=== PATIENT | male | born 1950 | race African-American/Black ===

== ENCOUNTER 2019-03-26 06:18 | Emergency (ER) | payer OTHER ==
[~2019-03-26] VITALS: Ht 182.9 cm; Wt 90.7 kg
--- OUTSIDE RECORDS SUMMARY | 2019-03-26 06:20 | XMS REPORT | Clinical Summary ---
Author Author [facility] Organization [facility] Address Unknown Phone Unavailable Care Team Providers Care Customer Security Clerk Name Role Phone Asked, No Pcp PCP Unavailable Allergies No Known Allergies Medications End Date Status Medication Sig Dispensed Refills Start Date 08/08/2018 levoFLOXacin (LEVAQUIN) Take 1 tablet 3 tablet 0 750 MG tablet (750 mg 9 total) by mouth every other day for 7 days. 2018 ipratropium-albuterol Inhale 2 4 g 0 (COMBIVENT RESPIMAT) puffs every 4 9 20-100 mcg/actuation mist (four) hours inhaler as needed for wheezing for up to 30 days. Active Problems Problem Noted Date Community acquired pneumonia 07/31/2018 Encounters Care Team Description Date Type Specialty Niko Rodriguez DO Patel, Akash Mahendra, MD Community acquired pneumonia, unspecified laterality (Primary Dx); Acute systolic congestive heart failure (HCC) 07/31/2018 [facility] General Internal Medicine - Encounter 08/01/2018 Loretta Mayer NP 04/12/2018 Refill Endocrinology after 03/25/2018 Social History Date Tobacco Use Types Packs/Day Years Used Never Smoker Smokeless Tobacco: Snuff, Chew Current User Drinks/Week oz/Week Comments Alcohol Use No Alcohol Habits Answer Date Recorded How often do you have a drink containing alcohol? Never 07/31/2018 How many drinks containing alcohol do you have on Not asked a typical day when you are drinking? How often do you have six or more drinks on one Not asked occasion? Sex Assigned at Date Recorded Not on file Industry Job Start Date Occupation Not on file Not on file Not on file Travel End Travel History Travel Start No recent travel history available. Last Filed Vital Signs Reading Time Taken Comments Vital Sign 122/71 08/01/2018 10:37 AM RN FAMILY Blood Pressure 78 08/01/2018 10:37 AM RN FAMILY Pulse 36.9 C (98.4 F) 08/01/2018 10:37 AM RN FAMILY Temperature 18 08/01/2018 10:37 AM RN FAMILY Respiratory Rate 97% 08/01/2018 10:37 AM RN FAMILY Oxygen Saturation - - Inhaled Oxygen Concentration 98.4 kg (217 lb) 07/31/2018 10:48 PM RN FAMILY Weight 175.3 cm (5' 9") 07/31/2018 9:46 PM RN FAMILY Height 32.05 07/31/2018 9:46 PM RN FAMILY Body Mass Index Plan of Treatment Health Maintenance Due Date Last Done Comments COLONOSCOPY SCREENING 2001 SHINGLES VACCINES (#1) 2001 65+ PNEUMOCOCCAL VACCINE 2016 01/31/2018, 11/21/2016 (2 of 2 - PPSV23) INFLUENZA VACCINE 02/12/2019 Procedures Comments Procedure Name Priority Date/Time Associated Diagnosis POC GLUCOSE Routine 08/01/2018 11:29 AM RN FAMILY LACTIC ACID LEVEL, SEPSIS Timed 08/01/2018 - NOW AND REPEAT 2X EVERY 5:46 AM RN FAMILY 3 HOURS TROPONIN Timed 08/01/2018 5:46 AM RN FAMILY POC GLUCOSE Routine 08/01/2018 5:44 AM RN FAMILY HEMOGLOBIN A1C Routine 08/01/2018 3:00 AM RN FAMILY TROPONIN Timed 08/01/2018 3:00 AM RN FAMILY RESPIRATORY PATHOGEN Routine 07/31/2018 PANEL 11:30 PM RN FAMILY BLOOD CULTURE, AEROBIC & Routine 07/31/2018 ANAEROBIC 11:21 PM RN FAMILY LACTIC ACID LEVEL, SEPSIS Timed 07/31/2018 - NOW AND REPEAT 2X EVERY 11:06 PM RN FAMILY 3 HOURS BLOOD CULTURE, AEROBIC & Routine 07/31/2018 ANAEROBIC 11:05 PM RN FAMILY XR CHEST 2 VW STAT 07/31/2018 10:20 PM RN FAMILY ESTIMATED GFR STAT 07/31/2018 10:03 PM RN FAMILY B NATRIURETIC PEPTIDE STAT 07/31/2018 10:03 PM RN FAMILY TROPONIN STAT 07/31/2018 10:03 PM RN FAMILY CREATINE KINASE, TOTAL STAT 07/31/2018 (CPK) 10:03 PM RN FAMILY BASIC METABOLIC PANEL STAT 07/31/2018 10:03 PM RN FAMILY HC COMPLETE BLD COUNT STAT 07/31/2018 W/AUTO DIFF 10:03 PM RN FAMILY ECG 12-LEAD STAT 07/31/2018 9:44 PM RN FAMILY ECG ED PRELIMINARY Routine 07/31/2018 INTERPRETATION 9:42 PM RN FAMILY ND CRITICAL CARE, E/M Routine 07/31/2018 30-74 MINUTES 9:42 PM RN FAMILY after 03/25/2018 Results * POC glucose (08/01/2018 11:29 AM RN FAMILY) Only the most recent of 2 results within the time period is included. [facility] POC glucose 97 65 - 99 mg/dL [place] Comment: [facility] Meter ID: [id number] [facility] Pattern Drum Maker: Yue Levin Specimen Performing Organization Address [facility] Phone Number [address] [place] [address] PATHOLOGY AND GENOMIC MEDICINE [address] * Lactic acid level, SEPSIS - Now and repeat 2x every 3 hours (08/01/2018 5:46 AM RN FAMILY) Only the most recent of 2 results within the time period is included. [facility] Lactic acid 1.1 0.5 - 2.2 mmol/L [facility] Specimen Plasma specimen Performing Organization Address [facility] Phone Number [address] [place] [address] PATHOLOGY AND GENOMIC MEDICINE [address] * Troponin (08/01/2018 5:46 AM RN FAMILY) Only the most recent of 3 results within the time period is included. [facility] Troponin <0.300 0.000 - 0.300 ng/mL [place] Comment: [facility] Kaela 0.30 - 1.49 [facility] ng/mlMay indicate increased risk of acute coronary syndrome. >=1.5 ng/ml Consistent with acute myocardial infarction. The diagnostic value of a single normal or non-diagnostic result is questionable.Serial samples at 2-6 hour intervals are required to rule out acute myocardial injury. Specimen Plasma specimen Performing Organization Address [facility] Phone Number [facility] OF [address] [place] [address] [place] [address] PATHOLOGY AND [facility] MEDICINE [address] * Hemoglobin A1c (08/01/2018 3:00 AM RN FAMILY) [facility] Hemoglobin A1C 6.2 (H) 4.0 - 6.0 % [place] Comment: [facility] Less than 6% - Goal of therapy for Type II Diabetes Less than 7%-Goal of therapy for Type I Diabetes Less than 8%-Accepta ble control for Type I or Type II Diabetes Greater than 8%-Unacceptabl e control; action indicated. ([id number]) Specimen Blood Performing Organization Address [facility] Phone Number [address] [place] [address] PATHOLOGY AND [facility] MEDICINE [address] * Respiratory pathogen panel (07/31/2018 11:30 PM RN FAMILY) [facility] Respiratory Negative for all pathogens [place] pathogen panel tested: [facility] Negative for Adenovirus [facility] Negative for Coronavirus HKU1 Negative for Coronavirus NL63 Negative for Coronavirus 229E Negative for Coronavirus OC43 Negative for Human Metapneumovirus Negative for Rhinovirus/Enterovirus Negative for Influenza A Negative for Influenza A/H1 Negative for Influenza A/H3 Negative for Influenza A/H1-2009 Negative for Influenza B Negative for Parainfluenza Virus 1 Negative for Parainfluenza Virus 2 Negative for Parainfluenza Virus 3 Negative for Parainfluenza Virus 4 Negative for Respiratory Syncytial Virus Negative for Bordetella pertussis Negative for Chlamydophila pneumoniae Negative for Mycoplasma pneumoniae This real-time PCR assay detects the presence of nucleic acids (RNA or DNA) for the respiratory pathogens listed. A result of "Not-detected" does not exclude the possibility of the presence of one or more pathogens at concentrations less than the detectable limits of the assay. Comment: Specimen Information Specimen Source: Nares Specimen Site: Right Specimen Nares - Right Performing Organization Address [facility] Phone Number [facility] [place] [address] PATHOLOGY AND GENOMIC MEDICINE [place] [facility] [address] [place] [address] HOSPITAL * Blood culture, aerobic & anaerobic (07/31/2018 11:21 PM RN FAMILY) Only the most recent of 2 results within the time period is included. Blood culture No growth after 5 days of [place] isolate incubation. [facility] Comment: HOSPITAL Specimen Information Specimen Source: Blood Specimen Site: Antecubital, right Specimen Blood - Antecubital, right Performing Organization Address [facility] Phone Number [facility] [place] [address] PATHOLOGY AND GENOMIC MEDICINE [place] [facility] [address] [place] [address] HOSPITAL * XR Chest 2 Vw (07/31/2018 10:20 PM RN FAMILY) Specimen Narrative Performed At EXAMINATION: XR CHEST 2 VW [facility]IANT CLINICAL HISTORY: Chest painnormal ekg COMPARISON:None. IMPRESSION: Diffuse linear interstitial opacities and peribronchial cuffing which likely represents an infectious process, in the appropriate clinical setting. No focal consolidations. No pleural effusion or pneumothorax. The cardiomediastinal silhouette is normal. No acute osseous abnormalities. [facility]-[id number] Procedure Note Interface, Radiology Results Incoming - 07/31/2018 10:27 PM RN FAMILY EXAMINATION: XR CHEST 2 VW CLINICAL HISTORY: Chest pain normal ekg COMPARISON: None. IMPRESSION: Diffuse linear interstitial opacities and peribronchial cuffing which likely represents an infectious process, in the appropriate clinical setting. No focal consolidations. No pleural effusion or pneumothorax. The cardiomediastinal silhouette is normal. No acute osseous abnormalities. [facility]-[id number] Performing Organization Address [facility]/State/Zipcode Phone Number [facility] [address] [place] [address] * Estimated GFR (07/31/2018 10:03 PM RN FAMILY) Pathologist [facility] Estimated GFR 41 (A) mL/min/1.73 m2 [place] Comment: [facility] rpretation G1 >=90 Normal or high G2 60-89Mildly decreased [id number] Mildly to moderately decreased [id number] Moderately to severely decreased G4 15-29Severely decreased G5 <15Kidney failure The eGFR was calculated using the Chronic Kidney Disease Epidemiology Collaboration (CKD-EPI) equation. Interpretation is based on recommendations of the National Kidney Foundation-Kidney Disease Outcomes Quality Initiative (NKF-KDOQI) published in 2014. Specimen Plasma specimen Performing Organization Address City/State/Zipcode Phone Number [facility][1] [id number] [place] [address] [place] [address] PATHOLOGY AND GENOMIC MEDICINE [address] [place] [address] [facility] * CBC with platelet and differential (07/31/2018 10:03 PM RN FAMILY) [facility] WBC 16.91 (H) 4.50 - 11.00 k/uL [facility] RBC 4.62 4.40 - 6.00 m/uL [facility] HGB 13.3 (L) 14.0 - 18.0 g/dL [facility] HCT 41.3 41.0 - 51.0 % [facility] MCV 89.4 82.0 - 100.0 fL [facility] MCH 28.8 27.0 - 34.0 pg [facility] MCHC 32.2 31.0 - 37.0 g/dL [facility] RDW - SD 44.5 37.0 - 55.0 fL [facility] MPV 9.8 8.8 - 13.2 fL [facility] Platelet count 378 150 - 400 k/uL [facility] Nucleated RBC 0.00 /100 WBC [facility] Neutrophils 80.0 (H) 39.0 - 69.0 % [facility] Lymphocytes 15.4 (L) 25.0 - 45.0 % [facility] Monocytes 2.8 0.0 - 10.0 % [facility] Eosinophils 1.2 0.0 - 5.0 % [facility] Basophils 0.4 0.0 - 1.0 % [facility] Specimen Blood Performing Organization Address City/[facility] Phone Number [address] [place] [address] PATHOLOGY AND GENOMIC MEDICINE [address] * B natriuretic peptide (07/31/2018 10:03 PM RN FAMILY) Pathologist [facility] BNP 646 (H) 0 - 100 pg/mL [facility] Specimen Blood Performing Organization Address City/[facility] Phone Number [address] [place] [address] PATHOLOGY AND GENOMIC MEDICINE [address] * Creatine kinase, total (CPK) (07/31/2018 10:03 PM RN FAMILY) Pathologist [facility] Creatine kinase 207 39 - 308 U/L [facility] Specimen Plasma specimen Performing Organization Address City/[facility] Phone Number [address] [place] [address] PATHOLOGY AND GENOMIC MEDICINE [address] * Basic metabolic panel (07/31/2018 10:03 PM RN FAMILY) Pathologist [facility] Sodium 141 135 - 148 mEq/L [facility] Potassium 3.7 3.5 - 5.0 mEq/L [facility] Chloride 104 98 - 112 mEq/L [facility] CO2 21 (L) 24 - 31 mEq/L [facility] Anion gap 16@ANIO (H) 7 - 15 mEq/L [facility] BUN 18 8 - 23 mg/dL [facility] Creatinine 1.70 (H) 0.70 - 1.20 mg/dL [facility] Glucose 219 (H) 65 - 99 mg/dL [facility] Calcium 9.5 8.8 - 10.2 mg/dL [facility] Specimen Plasma specimen Performing Organization Address City/[facility]/Zipcode [place] Number [place] [address] [place] [address] PATHOLOGY AND GENOMIC MEDICINE [facility] [address] [place] [address] [facility] * ECG 12 lead (07/31/2018 9:44 PM RN FAMILY) Ventricular 112 [facility] rate Atrial rate 112 [facility] ND interval 160 [facility] QRSD interval 94 [facility] QT interval 330 [facility] QTC interval 450 [facility] P axis 1 51 [facility] QRS axis 1 -27 [facility] T wave axis 103 [facility] EKG impression Sinus tachycardia-Possible [facility] Left atrial enlargement-Nonspecific T wave abnormality-Abnormal ECG-No previous ECGs available- Specimen Narrative Performed At Performing Organization Address City/[facility] Phone Number [facility] MUSE [address] [place] [address] * ECG ED Preliminary Interpretation - Not an Order (07/31/2018 9:42 PM RN FAMILY) Narrative Performed At Niko Rodriguez DO 08/01/2018 12:24 AM ECG ED Preliminary Interpretation - Not an Order Performed by: Niko Rodriguez DO Authorized by: Niko Rodriguez DO ECG reviewed by ED Physician in the absence of a deputy coroner investigator: yes ([id number]) Previous ECG: Previous ECG:Unavailable Interpretation: Interpretation: normal Rate: ECG rate:112 ECG rate assessment: tachycardic Rhythm: Rhythm: sinus rhythm and sinus tachycardia Ectopy: Ectopy: none QRS: QRS axis:Normal QRS intervals:Normal Conduction: Conduction: normal ST segments: ST segments:Non-specific T waves: T waves: non-specific * CRITICAL CARE (07/31/2018 9:42 PM RN FAMILY) Narrative Performed At Niko Rodriguez DO 08/01/2018 12:24 AM Critical Care Performed by: Niko Rodriguez DO Authorized by: Niko Rodriguez DO Critical care provider statement: Critical care time (minutes):60 Critical care end time:08/01/2018 12:24 AM Critical care time was exclusive of:Separately billable procedures and treating other patients Critical care was necessary to treat or prevent imminent or life-threatening deterioration of the following conditions:Respiratory failure Critical care was time spent personally by me on the following activities:Ordering and performing treatments and interventions, ordering and review of laboratory studies, ordering and review of radiographic studies, pulse oximetry, re-evaluation of patient's condition, review of old charts, development of treatment plan with patient or surrogate, discussions with primary provider, evaluation of patient's response to treatment, examination of patient and obtaining history from patient or surrogate John 'yes' if you are taking over critical care for this patient from another provider.: no after 03/25/2018 Insurance Type Payer Benefit Subscriber ID Effective Phone Address Plan / Dates Group HMO CIGNA CIGNA OPEN xxxxxxxxxxx 2016-P ACCESS/NET resent WORK Medicare MEDICARE MEDICARE xxxxxxxxxx 2016-P [place], PART A resent [place] Advance Directives For more information, please contact: [phone] Patient Erp Programmer Explanation Type Date Recorded 000 Advance Directives, 07/31/2018 9:44 PM Living Will and Medical Power of Program Consultant
[2019-03-26] MEDS ORDERED: ATORVASTATIN CA40 MG PO (06:34)
[2019-03-26] MEDS ORDERED: LISINOPRIL-HCT1 EAC1 PO (06:34)
[2019-03-26 06:44] LABS: BASOPHILS # (AUTO) 0.1 (0.0-0.1); BASOPHILS % 0.7 % (0.0-1.0); EOSINOPHILS # (AUTO) 0.2 (0.0-0.4); EOSINOPHILS % 2.5 % (0.0-6.0); HEMATOCRIT 37.4 % (38.2-49.6); HEMOGLOBIN 12.4 g/dL (14.0-18.0); LYMPHOCYTES # (AUTO) 3.6 (1.0-3.2); LYMPHOCYTES % 42.7 % (18.0-39.1); MEAN CORPUSCULAR HEMOGLOBIN 29.2 pg (28-32); MEAN CORPUSCULAR HGB CONC 33.2 g/dL (31-35); MEAN CORPUSCULAR VOLUME 88.2 fL (81-99); MONOCYTES # (AUTO) 0.5 (0.2-0.8); MONOCYTES % 6.2 % (4.4-11.3); NEUTROPHILS % 47.7 % (38.7-80.0); PLATELET COUNT 348 x10e3/uL (140-360); RED BLOOD COUNT 4.24 x10e6/uL (4.3-5.7); RED CELL DISTRIBUTION WIDTH 13.3 % (11.7-14.4)
--- NOTE | 2019-03-26 06:49 | NUR ---
REPORT TO [facility]
[2019-03-26 07:00] LABS: INR 0.93
[2019-03-26 07:01] LABS: PARTIAL THROMBOPLASTIN TIME 36.3 seconds (23.8-35.5)
[2019-03-26 07:08] LABS: ALBUMIN 3.8 g/dL (3.5-5.0); ALBUMIN/GLOBULIN RATIO 1.2 (0.8-2.0); ANION GAP 14.1 mmol/L (8-16); CALCIUM 9.9 mg/dL (8.4-10.2); CREATININE, SERUM 2.11 mg/dL (0.72-1.25); POTASSIUM 4.1 mmol/L (3.5-5.1)
[2019-03-26 07:15] LABS: CREATINE KINASE MB 2.4 ng/mL (0-5.0)
--- NOTE | 2019-03-26 07:20 | NUR ---
PT IN SEMI-FOWLERS ON STRETCHER FILLING OUT PAPERWORK, BREATHING EVEN/UNLABORED, NON-DIAPHORETIC, NAD NOTED, NO NEEDS VOICED AT THIS TIME, BED LOW/LOCKED, CALL LIGHT IN REACH, WILL CONTINUE TO MONITOR.
--- NOTE | 2019-03-26 07:31 | Diagnostic Imaging Report ---
Examination: Single AP view of the chest. COMPARISON: None. INDICATION: Shortness of breath DISCUSSION: The lungs are well-inflated. No focal airspace consolidation, pleural effusion, or pneumothorax. Tortuous thoracic aorta with atherosclerotic calcification. Otherwise normal cardiomediastinal contour. No overt pulmonary edema. No acute osseous abnormality. IMPRESSION: 1. No acute cardiopulmonary abnormalities. Signed by: Dr. Milo Graff M.D. on 03/26/2019 7:28 AM
[2019-03-26 08:05] VITALS: BP 133/83
== END 2019-03-26 08:06 | disposition home or self-care (01) ==
LOC: ER 06:18
DX: R06.09 Other forms of dyspnea (principal); K21.0 Gastro-esophageal reflux disease with esophagitis; E11.65 Type 2 diabetes mellitus with hyperglycemia; F41.9 Anxiety disorder, unspecified; I10 Essential (primary) hypertension
CPT/HCPCS: 36415; 71045; 80053; 82550; 82553; 83880; 84484; 85025; 85610; 85730; 93005; 99284